=== PATIENT | male | born 1955 | race Caucasian/White ===

== ENCOUNTER → 2021-03-11 | Outpatient (CLI) | payer MEDICARE ==
[~2021-03-11] MED LIST: IOPAMIDOL 370 MG/ML 200 ML INFUS..BTL INJ ONE; SODIUM CHLORIDE 0.9% 50ML 50 ML ONE
[2021-03-11 11:07] LABS: CREATININE, SERUM 0.88 mg/dL (0.72-1.25)
== END ==
LOC: NM 09:48
PROVIDERS: ATTEND Urology
DX: C61 Malignant neoplasm of prostate (principal)
CPT/HCPCS: 36415; 71046; 74177; 78306; 82565; 84520; A9503; Q9967; A9570

== ENCOUNTER 2021-05-03 10:06 | Inpatient (IN) | payer MEDICARE ==
[2021-05-02 10:11] LABS: BASOPHILS % 0.2 % (0.0-1.0); EOSINOPHILS # (AUTO) 0.1 (0.0-0.4); EOSINOPHILS % 0.9 % (0.0-6.0); HEMATOCRIT 47.7 % (38.2-49.6); HEMOGLOBIN 15.6 g/dL (14.0-18.0); LYMPHOCYTES # (AUTO) 1.4 (1.0-3.2); LYMPHOCYTES % 24.6 % (18.0-39.1); MEAN CORPUSCULAR HEMOGLOBIN 29.8 pg (28-32); MEAN CORPUSCULAR HGB CONC 32.7 g/dL (31-35); MEAN CORPUSCULAR VOLUME 91.2 fL (81-99); MONOCYTES # (AUTO) 0.4 (0.2-0.8); MONOCYTES % 7.2 % (4.4-11.3); NEUTROPHILS # (AUTO) 3.8 (2.1-6.9); NEUTROPHILS % 66.9 % (38.7-80.0); PLATELET COUNT 197 x10e3/uL (140-360); RED BLOOD COUNT 5.23 x10e6/uL (4.3-5.7); RED CELL DISTRIBUTION WIDTH 12.5 % (11.7-14.4)
[2021-05-02 10:38] LABS: ALBUMIN 4.2 g/dL (3.5-5.0); ALBUMIN/GLOBULIN RATIO 1.3 (0.8-2.0); ANION GAP 13.3 mmol/L (8-16); CALCIUM 10.6 mg/dL (8.4-10.2); CREATININE, SERUM 0.81 mg/dL (0.72-1.25); POTASSIUM 5.3 mmol/L (3.5-5.1)
[~2021-05-03] VITALS: Ht 188 cm; Wt 103.9 kg
[~2021-05-03 10:06] MED LIST changes: +BENICAR20 MG PO; +CALCIUM600 MG PO; +COMBIGAN EYE DRO5 ML OP; +CRESTOR10 MG PO; +FINASTERIDE5 MG PO; +FLOMAX0.4 MG PO; -IOPAMIDOL 370 MG/ML 200 ML INFUS..BTL INJ ONE; +ROCKLATAN 0.022.5 ML OP; -SODIUM CHLORIDE 0.9% 50ML 50 ML ONE
[2021-05-03] MEDS ORDERED: SODIUM CHLORIDE 0.9% 50ML 100 ML ONE (11:18)
[2021-05-03] MEDS ORDERED: MIDAZOLAM HCL 2 MG/2 ML VIAL ONE (12:49)
[2021-05-03] MEDS ORDERED: FENTANYL CITRATE/PF 100MCG/2 ML INJ ONE ×2 (12:49→15:16)
[2021-05-03] MEDS ORDERED: KETAMINE HCL INJ 50 MG/ML 10 ML VIAL ONE (12:49)
[2021-05-03] MEDS ORDERED: PROPOFOL IV EMULSION 10 MG/ML 20 ML VIAL ONE (14:14)
[2021-05-03] MEDS ORDERED: ROCURONIUM BROMIDE 10 MG/ML 5ML VIAL IV ONE (14:14)
[2021-05-03] MEDS ORDERED: EPHEDRINE SULFATE INJ 50 MG/ML VIAL ONE (14:14)
[2021-05-03] MEDS ORDERED: NEOSTIGMINE 1 MG/ML 10ML VIAL ONE (14:14)
[2021-05-03] MEDS ORDERED: DEXAMETHASONE SOD PHOS INJ 4 MG/ML SDV ONE (14:14)
[2021-05-03] MEDS ORDERED: ONDANSETRON HCL INJ 2MG/ML 2ML 2 MG/ML VIAL ONE (14:14)
[2021-05-03] MEDS ORDERED: POVIDONE IODINE 0.05% 0.05 % ML PO ONE (14:14)
[2021-05-03] MEDS ORDERED: LIDOCAINE HCL 2% LOCAL INJ 5 ML SDV VIAL INJ ONE (14:14)
[2021-05-03] MEDS ORDERED: GLYCOPYRROLATE INJ 0.2 MG/ML VIAL ONE (14:14)
[2021-05-03] MEDS ORDERED: SUCCINYLCHOLINE CHLORIDE 20 MG/ML 10ML VIAL ONE (14:14)
[2021-05-03] MEDS ORDERED: SEVOFLURANE INHAL SOLN 250 ML PEN BTL ONE (14:14)
[2021-05-03] MEDS: D5.45%NS/KCL 20MEQ 1,000 ML IV SCH ×2 (14:45→21:09)
[2021-05-03] MEDS ORDERED: DIPHENHYDRAMINE HCL INJ 50 MG/ML VIAL IM PRN (14:45)
[2021-05-03] MEDS ORDERED: NALOXONE HCL INJ 0.4 MG/ML AMP IV PRN (14:45)
[2021-05-03] MEDS ORDERED: ONDANSETRON HCL INJ 2MG/ML 2ML 2 MG/ML VIAL IV PRN (14:45)
[2021-05-03] MEDS ORDERED: MORPHINE SULFATE 1 MG/ML 30ML PCA ONE (15:03)
[2021-05-03 15:10] LABS: BASOPHILS % 0.1 % (0.0-1.0); EOSINOPHILS % 0.1 % (0.0-6.0); HEMATOCRIT 44.7 % (38.2-49.6); HEMOGLOBIN 14.5 g/dL (14.0-18.0); LYMPHOCYTES # (AUTO) 1.2 (1.0-3.2); LYMPHOCYTES % 10.6 % (18.0-39.1); MEAN CORPUSCULAR HEMOGLOBIN 29.5 pg (28-32); MEAN CORPUSCULAR HGB CONC 32.4 g/dL (31-35); MEAN CORPUSCULAR VOLUME 90.9 fL (81-99); MONOCYTES # (AUTO) 0.5 (0.2-0.8); MONOCYTES % 4.4 % (4.4-11.3); NEUTROPHILS # (AUTO) 9.5 (2.1-6.9); NEUTROPHILS % 84.4 % (38.7-80.0); PLATELET COUNT 153 x10e3/uL (140-360); RED BLOOD COUNT 4.92 x10e6/uL (4.3-5.7); RED CELL DISTRIBUTION WIDTH 12.4 % (11.7-14.4)
[2021-05-03 15:29] LABS: ANION GAP 10.3 mmol/L (8-16); CALCIUM 9.6 mg/dL (8.4-10.2); CREATININE, SERUM 0.82 mg/dL (0.72-1.25); POTASSIUM 4.3 mmol/L (3.5-5.1)
[2021-05-03] MEDS ORDERED: Morphine 4mg Syringe 4 MG/ML INJ ONE (15:32)
[2021-05-03] MEDS ORDERED: HYDROMORPHONE 1MG/1ML INJ ONE (15:45)
[2021-05-03 17:00] VITALS: BP 127/71
[2021-05-03 17:12] VITALS: BP 149/75
[2021-05-03] MEDS ORDERED: ACETAMINOPHEN 1000 MG/100 ML IV PRN (18:00)
[2021-05-03] MEDS: DOCUSATE SODIUM 100 MG CAP PO SCH (18:08)
[2021-05-03 20:26] VITALS: BP 160/80
[2021-05-03] MEDS: Cefazolin 1 GM in SODIUM CHLORIDE 0.9% 50ML 50 ML IV SCH (21:03)
[2021-05-03] MEDS: MORPHINE SULFATE 1 MG/ML 30ML PCA IV PRN (23:35)
[2021-05-04] VITALS (8 sets, daily range): BP systolic 139–160; BP diastolic 67–85
[2021-05-04] MEDS: D5.45%NS/KCL 20MEQ 1,000 ML IV SCH ×3 (03:12→21:00)
[2021-05-04] MEDS: Cefazolin 1 GM in SODIUM CHLORIDE 0.9% 50ML 50 ML IV SCH ×3 (05:21→22:56)
[2021-05-04 06:44] LABS: BASOPHILS % 0.1 % (0.0-1.0); HEMATOCRIT 44.5 % (38.2-49.6); HEMOGLOBIN 14.7 g/dL (14.0-18.0); LYMPHOCYTES # (AUTO) 1.4 (1.0-3.2); MEAN CORPUSCULAR HEMOGLOBIN 29.3 pg (28-32); MEAN CORPUSCULAR VOLUME 88.6 fL (81-99); MONOCYTES % 9.8 % (4.4-11.3); NEUTROPHILS % 76.6 % (38.7-80.0); PLATELET COUNT 189 x10e3/uL (140-360); RED BLOOD COUNT 5.02 x10e6/uL (4.3-5.7); RED CELL DISTRIBUTION WIDTH 12.4 % (11.7-14.4)
[2021-05-04 06:52] LABS: ANION GAP 12.8 mmol/L (8-16); CALCIUM 9.7 mg/dL (8.4-10.2); CREATININE, SERUM 0.77 mg/dL (0.72-1.25); POTASSIUM 4.8 mmol/L (3.5-5.1)
[2021-05-04] MEDS: MORPHINE SULFATE 1 MG/ML 30ML PCA IV PRN (09:23)
[2021-05-04] MEDS: DOCUSATE SODIUM 100 MG CAP PO SCH ×2 (09:58→17:55)
[2021-05-04] MEDS: COMBIGAN OPTH OP SCH (10:45)
[2021-05-04] MEDS: FINASTERIDE 5 MG TAB PO SCH (12:07)
[2021-05-04] MEDS: OLMESARTAN 20 MG TAB PO SCH (12:07)
[2021-05-04] MEDS ORDERED: MORPHINE SULFATE 1 MG/ML 30ML PCA IV PRN (16:15)
[2021-05-04] MEDS: TAMSULOSIN HCL 0.4 MG CAP PO SCH (17:55)
[2021-05-04] MEDS: SIMVASTATIN 40 MG TAB PO SCH (21:29)
[2021-05-05] VITALS (7 sets, daily range): BP systolic 134–156; BP diastolic 69–77
[2021-05-05] MEDS: Cefazolin 1 GM in SODIUM CHLORIDE 0.9% 50ML 50 ML IV SCH ×3 (06:18→22:00)
[2021-05-05] MEDS: D5.45%NS/KCL 20MEQ 1,000 ML IV SCH (06:45)
[2021-05-05 07:12] LABS: ANION GAP 12.4 mmol/L (8-16); CALCIUM 9.9 mg/dL (8.4-10.2); CREATININE, SERUM 0.74 mg/dL (0.72-1.25); POTASSIUM 5.4 mmol/L (3.5-5.1)
[2021-05-05 07:20] LABS: BASOPHILS % 0.2 % (0.0-1.0); EOSINOPHILS % 0.4 % (0.0-6.0); HEMATOCRIT 44.7 % (38.2-49.6); HEMOGLOBIN 14.7 g/dL (14.0-18.0); LYMPHOCYTES # (AUTO) 1.5 (1.0-3.2); LYMPHOCYTES % 18.4 % (18.0-39.1); MEAN CORPUSCULAR HEMOGLOBIN 30.7 pg (28-32); MEAN CORPUSCULAR HGB CONC 32.9 g/dL (31-35); MEAN CORPUSCULAR VOLUME 93.3 fL (81-99); MONOCYTES # (AUTO) 0.8 (0.2-0.8); MONOCYTES % 10.1 % (4.4-11.3); NEUTROPHILS # (AUTO) 5.8 (2.1-6.9); NEUTROPHILS % 70.7 % (38.7-80.0); PLATELET COUNT 158 x10e3/uL (140-360); RED BLOOD COUNT 4.79 x10e6/uL (4.3-5.7); RED CELL DISTRIBUTION WIDTH 12.8 % (11.7-14.4)
[2021-05-05] MEDS: COMBIGAN OPTH OP SCH (09:25)
[2021-05-05] MEDS: DOCUSATE SODIUM 100 MG CAP PO SCH ×2 (09:26→16:52)
[2021-05-05] MEDS: FINASTERIDE 5 MG TAB PO SCH (09:26)
[2021-05-05] MEDS: OLMESARTAN 20 MG TAB PO SCH (09:26)
[2021-05-05] MEDS ORDERED: HYDROCODONE/APAP 10MG-325MG TAB PO PRN (10:00)
[2021-05-05] MEDS ORDERED: MAGNESIUM HYDROXIDE 30 ML UDC PO PRN (10:00)
[2021-05-05] MEDS ORDERED: Morphine 4mg Syringe 4 MG/ML INJ IV PRN (10:00)
[2021-05-05] MEDS: SENNA-S TABLET PO SCH ×2 (11:09→16:52)
[2021-05-05] MEDS ORDERED: ACETAMINOPHEN/CODEINE 300MG - 30MG TAB PO PRN (13:15)
[2021-05-05] MEDS: TAMSULOSIN HCL 0.4 MG CAP PO SCH (16:52)
[2021-05-05 17:40] LABS: ANION GAP 13.6 mmol/L (8-16); CALCIUM 10.4 mg/dL (8.4-10.2); CREATININE, SERUM 0.83 mg/dL (0.72-1.25); POTASSIUM 4.6 mmol/L (3.5-5.1)
[2021-05-05] MEDS: SIMVASTATIN 40 MG TAB PO SCH (21:03)
[2021-05-06] VITALS: BP 149/71
[2021-05-06 04:00] VITALS: BP 143/75
[2021-05-06 05:37] LABS: BASOPHILS % 0.2 % (0.0-1.0); EOSINOPHILS # (AUTO) 0.1 (0.0-0.4); EOSINOPHILS % 1.9 % (0.0-6.0); HEMATOCRIT 44.8 % (38.2-49.6); HEMOGLOBIN 14.4 g/dL (14.0-18.0); LYMPHOCYTES # (AUTO) 1.6 (1.0-3.2); LYMPHOCYTES % 25.8 % (18.0-39.1); MEAN CORPUSCULAR HEMOGLOBIN 29.7 pg (28-32); MEAN CORPUSCULAR HGB CONC 32.1 g/dL (31-35); MEAN CORPUSCULAR VOLUME 92.4 fL (81-99); MONOCYTES # (AUTO) 0.9 (0.2-0.8); MONOCYTES % 13.9 % (4.4-11.3); NEUTROPHILS # (AUTO) 3.7 (2.1-6.9); NEUTROPHILS % 57.9 % (38.7-80.0); PLATELET COUNT 163 x10e3/uL (140-360); RED BLOOD COUNT 4.85 x10e6/uL (4.3-5.7); RED CELL DISTRIBUTION WIDTH 12.7 % (11.7-14.4)
[2021-05-06 06:10] LABS: ANION GAP 11.4 mmol/L (8-16); CALCIUM 10.4 mg/dL (8.4-10.2); CREATININE, SERUM 0.81 mg/dL (0.72-1.25); POTASSIUM 5.4 mmol/L (3.5-5.1)
[2021-05-06 08:00] VITALS: BP 150/75
[2021-05-06 08:34] VITALS: BP 150/75
[2021-05-06] MEDS: FINASTERIDE 5 MG TAB PO SCH (08:51)
[2021-05-06] MEDS: DOCUSATE SODIUM 100 MG CAP PO SCH (08:51)
[2021-05-06] MEDS: SENNA-S TABLET PO SCH (08:52)
[2021-05-06] MEDS: COMBIGAN OPTH OP SCH (08:52)
[2021-05-06] MEDS: OLMESARTAN 20 MG TAB PO SCH (08:52)
[2021-05-06] MEDS ORDERED: ONDANSETRON HCL 4 MG ORAL DISINTEGRATING TAB PO PRN (09:00)
== END 2021-05-06 10:15 | disposition home or self-care (01) | DRG 716 ==
LOC: OR 10:06 → PACU V 14:34 → MED/SURG 16:40
PROVIDERS: ADMIT Internal Medicine; ATTEND Internal Medicine
PROC: 0TJB8ZZ Inspection of Bladder, Via Natural or Artificial Opening Endoscopic (ICD-10-PCS; principal; 2021-05-04)
PROC: 07BC4ZX Excision of Pelvis Lymphatic, Percutaneous Endoscopic Approach, Diagnostic (ICD-10-PCS; 2021-05-04)
DX: C61 Malignant neoplasm of prostate (principal); E66.9 Obesity, unspecified; Z68.29 Body mass index [BMI] 29.0-29.9, adult; I10 Essential (primary) hypertension; R06.83 Snoring; N40.1 Benign prostatic hyperplasia with lower urinary tract symptoms; R33.8 Other retention of urine; Z20.822 Contact with and (suspected) exposure to COVID-19; E78.5 Hyperlipidemia, unspecified
CPT/HCPCS: 36415; 80048; 80053; 83735; 84132; 85025; 86850; 86900; 88304; 88305; 93005; J0330; J0690; J1100; J1170; J2001; J2250; J2270; J2405; J2710; J3010; U0002

== ENCOUNTER 2021-05-29 07:54 | Inpatient (IN) | payer MEDICARE ==
[2021-05-27 15:24] LABS: BASOPHILS % 0.2 % (0.0-1.0); EOSINOPHILS # (AUTO) 0.1 (0.0-0.4); EOSINOPHILS % 1.7 % (0.0-6.0); HEMOGLOBIN 13.5 g/dL (14.0-18.0); LYMPHOCYTES # (AUTO) 1.7 (1.0-3.2); LYMPHOCYTES % 35.5 % (18.0-39.1); MEAN CORPUSCULAR HEMOGLOBIN 29.5 pg (28-32); MEAN CORPUSCULAR HGB CONC 32.1 g/dL (31-35); MEAN CORPUSCULAR VOLUME 91.9 fL (81-99); MONOCYTES # (AUTO) 0.5 (0.2-0.8); MONOCYTES % 9.7 % (4.4-11.3); NEUTROPHILS # (AUTO) 2.5 (2.1-6.9); NEUTROPHILS % 52.9 % (38.7-80.0); PLATELET COUNT 184 x10e3/uL (140-360); RED BLOOD COUNT 4.57 x10e6/uL (4.3-5.7); RED CELL DISTRIBUTION WIDTH 12.7 % (11.7-14.4)
[2021-05-27 15:46] LABS: ANION GAP 13.3 mmol/L (8-16); CALCIUM 10.4 mg/dL (8.4-10.2); CREATININE, SERUM 0.95 mg/dL (0.72-1.25)
[2021-05-27 15:47] LABS: POTASSIUM 5.3 mmol/L (3.5-5.1)
[~2021-05-29] VITALS: Ht 188 cm; Wt 103.9 kg
[2021-05-29] MEDS ORDERED: SODIUM CHLORIDE 0.9% 1000ML 1,000 ML ONE (08:11)
[2021-05-29] MEDS ORDERED: GENTAMICIN 80MG/NS 100 ML 200 ML IV ONE (08:21)
[2021-05-29] MEDS ORDERED: CEFTRIAXONE 1 GM VIAL ONE (08:22)
[2021-05-29] MEDS ORDERED: SODIUM CHLORIDE 0.9% 50ML 50 ML ONE (08:22)
[2021-05-29] MEDS ORDERED: BELLADONNA/OPIUM 30 MG SUPP RC ONE (09:31)
[2021-05-29] MEDS ORDERED: IOPAMIDOL 300MG/ML 50ML INFUS..BTL IV ONE (09:31)
[2021-05-29] MEDS ORDERED: HYDROMORPHONE 1MG/1ML INJ ONE (12:14)
[2021-05-29] MEDS ORDERED: Morphine 4mg Syringe 4 MG/ML INJ ONE (12:43)
[2021-05-29] MEDS ORDERED: ONDANSETRON HCL INJ 2MG/ML 2ML 2 MG/ML VIAL ONE (13:09)
[2021-05-29] MEDS ORDERED: DEXAMETHASONE SOD PHOS INJ 4 MG/ML SDV ONE (13:09)
[2021-05-29] MEDS ORDERED: PROPOFOL IV EMULSION 10 MG/ML 20 ML VIAL ONE (13:09)
[2021-05-29] MEDS ORDERED: SEVOFLURANE INHAL SOLN 250 ML PEN BTL ONE (13:09)
[2021-05-29] MEDS ORDERED: EPHEDRINE SULFATE INJ 50 MG/ML VIAL ONE (13:09)
[2021-05-29] MEDS ORDERED: POVIDONE IODINE 0.05% 0.05 % ML PO ONE (13:09)
[2021-05-29] MEDS ORDERED: LIDOCAINE HCL 2% LOCAL INJ 5 ML SDV VIAL INJ ONE (13:09)
[2021-05-29] MEDS ORDERED: KETOROLAC TROMETHAMINE 30 MG/ML VIAL ONE (13:09)
[2021-05-29] MEDS ORDERED: B&O 60MG R/S 60 MG SUPP PR PRN (13:15)
[2021-05-29] MEDS ORDERED: ONDANSETRON HCL INJ 2MG/ML 2ML 2 MG/ML VIAL IV PRN (13:15)
[2021-05-29] MEDS ORDERED: DIPHENHYDRAMINE HCL 25 MG CAP PO PRN (13:15)
[2021-05-29] MEDS ORDERED: MIDAZOLAM HCL 2 MG/2 ML VIAL ONE (13:43)
[2021-05-29] MEDS ORDERED: FENTANYL CITRATE/PF 100MCG/2 ML INJ ONE (13:43)
[2021-05-29 13:58] LABS: BASOPHILS % 0.1 % (0.0-1.0); EOSINOPHILS % 0.2 % (0.0-6.0); HEMATOCRIT 40.8 % (38.2-49.6); HEMOGLOBIN 13.4 g/dL (14.0-18.0); LYMPHOCYTES # (AUTO) 0.9 (1.0-3.2); LYMPHOCYTES % 9.7 % (18.0-39.1); MEAN CORPUSCULAR HEMOGLOBIN 29.5 pg (28-32); MEAN CORPUSCULAR HGB CONC 32.8 g/dL (31-35); MEAN CORPUSCULAR VOLUME 89.9 fL (81-99); MONOCYTES # (AUTO) 0.2 (0.2-0.8); NEUTROPHILS # (AUTO) 8.2 (2.1-6.9); NEUTROPHILS % 87.7 % (38.7-80.0); PLATELET COUNT 160 x10e3/uL (140-360); RED BLOOD COUNT 4.54 x10e6/uL (4.3-5.7); RED CELL DISTRIBUTION WIDTH 12.6 % (11.7-14.4)
[2021-05-29 14:19] LABS: ANION GAP 11.6 mmol/L (8-16); CALCIUM 9.3 mg/dL (8.4-10.2); CREATININE, SERUM 0.72 mg/dL (0.72-1.25); POTASSIUM 4.6 mmol/L (3.5-5.1)
[2021-05-29 15:03] VITALS: BP 139/67
[2021-05-29] MEDS: D5.45%NS/KCL 20MEQ 1,000 ML IV SCH ×2 (15:15→23:43)
[2021-05-29] MEDS: PHENAZOPYRIDINE HCL 100 MG TAB PO PRN (15:16)
[2021-05-29] MEDS: ACETAMINOPHEN/CODEINE 300MG - 30MG TAB PO PRN ×3 (15:30→23:44)
[2021-05-29] MEDS: DOCUSATE SODIUM 100 MG CAP PO SCH (17:21)
[2021-05-29 17:24] VITALS: BP 119/58
[2021-05-29 20:00] VITALS: BP 136/70
[2021-05-30] VITALS (8 sets, daily range): BP systolic 112–134; BP diastolic 57–64
[2021-05-30] MEDS: ACETAMINOPHEN/CODEINE 300MG - 30MG TAB PO PRN ×4 (05:31→20:39)
[2021-05-30 05:49] LABS: BASOPHILS % 0.1 % (0.0-1.0); HEMATOCRIT 36.1 % (38.2-49.6); HEMOGLOBIN 11.8 g/dL (14.0-18.0); LYMPHOCYTES # (AUTO) 1.5 (1.0-3.2); LYMPHOCYTES % 16.7 % (18.0-39.1); MEAN CORPUSCULAR HEMOGLOBIN 29.6 pg (28-32); MEAN CORPUSCULAR HGB CONC 32.7 g/dL (31-35); MEAN CORPUSCULAR VOLUME 90.5 fL (81-99); MONOCYTES # (AUTO) 0.7 (0.2-0.8); MONOCYTES % 7.3 % (4.4-11.3); NEUTROPHILS % 75.6 % (38.7-80.0); PLATELET COUNT 193 x10e3/uL (140-360); RED BLOOD COUNT 3.99 x10e6/uL (4.3-5.7); RED CELL DISTRIBUTION WIDTH 12.8 % (11.7-14.4)
[2021-05-30 06:09] LABS: ANION GAP 12.8 mmol/L (8-16); CALCIUM 9.6 mg/dL (8.4-10.2); CREATININE, SERUM 0.81 mg/dL (0.72-1.25); POTASSIUM 4.8 mmol/L (3.5-5.1)
[2021-05-30] MEDS: D5.45%NS/KCL 20MEQ 1,000 ML IV SCH ×3 (07:45→23:53)
[2021-05-30] MEDS: CEFTRIAXONE 1 GM in SODIUM CHLORIDE 0.9% 50ML 50 ML IV SCH (08:55)
[2021-05-30] MEDS: DOCUSATE SODIUM 100 MG CAP PO SCH ×2 (08:55→17:12)
[2021-05-30] MEDS: TAMSULOSIN HCL 0.4 MG CAP PO SCH (13:26)
[2021-05-30] MEDS: FINASTERIDE 5 MG TAB PO SCH (13:26)
[2021-05-30] MEDS: OLMESARTAN 20 MG TAB PO SCH (13:26)
[2021-05-30] MEDS: BRIMONIDINE/TIMOLOL (OPTH SOLN 5 ML DRPETTE OP SCH (15:35)
[2021-05-30] MEDS: SIMVASTATIN 20 MG TAB PO SCH (20:40)
[2021-05-30] MEDS: PHENAZOPYRIDINE HCL 100 MG TAB PO PRN (20:40)
[2021-05-31] VITALS (7 sets, daily range): BP systolic 113–127; BP diastolic 57–65
[2021-05-31 06:00] LABS: BASOPHILS % 0.2 % (0.0-1.0); EOSINOPHILS # (AUTO) 0.1 (0.0-0.4); EOSINOPHILS % 0.9 % (0.0-6.0); HEMATOCRIT 32.3 % (38.2-49.6); HEMOGLOBIN 10.4 g/dL (14.0-18.0); LYMPHOCYTES # (AUTO) 1.7 (1.0-3.2); LYMPHOCYTES % 25.9 % (18.0-39.1); MEAN CORPUSCULAR HEMOGLOBIN 29.6 pg (28-32); MEAN CORPUSCULAR HGB CONC 32.2 g/dL (31-35); MONOCYTES # (AUTO) 0.7 (0.2-0.8); MONOCYTES % 10.1 % (4.4-11.3); NEUTROPHILS # (AUTO) 4.1 (2.1-6.9); NEUTROPHILS % 62.6 % (38.7-80.0); PLATELET COUNT 140 x10e3/uL (140-360); RED BLOOD COUNT 3.51 x10e6/uL (4.3-5.7)
[2021-05-31 06:29] LABS: ANION GAP 8.9 mmol/L (8-16); CALCIUM 8.9 mg/dL (8.4-10.2); CREATININE, SERUM 0.64 mg/dL (0.72-1.25); POTASSIUM 3.9 mmol/L (3.5-5.1)
[2021-05-31] MEDS: TAMSULOSIN HCL 0.4 MG CAP PO SCH (08:29)
[2021-05-31] MEDS: OLMESARTAN 20 MG TAB PO SCH (08:29)
[2021-05-31] MEDS: DOCUSATE SODIUM 100 MG CAP PO SCH ×2 (08:29→16:12)
[2021-05-31] MEDS: CEFTRIAXONE 1 GM in SODIUM CHLORIDE 0.9% 50ML 50 ML IV SCH (08:30)
[2021-05-31] MEDS: BRIMONIDINE/TIMOLOL (OPTH SOLN 5 ML DRPETTE OP SCH (08:30)
[2021-05-31] MEDS: FINASTERIDE 5 MG TAB PO SCH (08:30)
[2021-05-31] MEDS: D5.45%NS/KCL 20MEQ 1,000 ML IV SCH ×2 (08:38→16:30)
[2021-05-31] MEDS: ACETAMINOPHEN/CODEINE 300MG - 30MG TAB PO PRN (08:40)
[2021-05-31] MEDS ORDERED: ONDANSETRON HCL 4 MG ORAL DISINTEGRATING TAB PO PRN (14:30)
[2021-05-31] MEDS: GENTAMICIN 80MG/NS 100 ML 100 ML IV SCH ×2 (16:13→22:29)
[2021-05-31] MEDS: SIMVASTATIN 20 MG TAB PO SCH (20:41)
[2021-06-01] VITALS (7 sets, daily range): BP systolic 123–144; BP diastolic 59–70
[2021-06-01] MEDS: GENTAMICIN 80MG/NS 100 ML 100 ML IV SCH ×2 (05:34→14:18)
[2021-06-01 06:41] LABS: BASOPHILS % 0.2 % (0.0-1.0); EOSINOPHILS # (AUTO) 0.1 (0.0-0.4); EOSINOPHILS % 1.7 % (0.0-6.0); HEMATOCRIT 34.7 % (38.2-49.6); HEMOGLOBIN 10.9 g/dL (14.0-18.0); LYMPHOCYTES # (AUTO) 1.8 (1.0-3.2); LYMPHOCYTES % 28.5 % (18.0-39.1); MEAN CORPUSCULAR HEMOGLOBIN 29.5 pg (28-32); MEAN CORPUSCULAR HGB CONC 31.4 g/dL (31-35); MEAN CORPUSCULAR VOLUME 93.8 fL (81-99); MONOCYTES # (AUTO) 0.6 (0.2-0.8); MONOCYTES % 10.2 % (4.4-11.3); NEUTROPHILS # (AUTO) 3.7 (2.1-6.9); NEUTROPHILS % 59.1 % (38.7-80.0); PLATELET COUNT 147 x10e3/uL (140-360); RED CELL DISTRIBUTION WIDTH 12.9 % (11.7-14.4)
[2021-06-01 06:58] LABS: ANION GAP 9.9 mmol/L (8-16); CALCIUM 9.3 mg/dL (8.4-10.2); CREATININE, SERUM 0.66 mg/dL (0.72-1.25); POTASSIUM 3.9 mmol/L (3.5-5.1)
[2021-06-01] MEDS: OLMESARTAN 20 MG TAB PO SCH (10:08)
[2021-06-01] MEDS: FINASTERIDE 5 MG TAB PO SCH (10:08)
[2021-06-01] MEDS: TAMSULOSIN HCL 0.4 MG CAP PO SCH (10:08)
[2021-06-01] MEDS: DOCUSATE SODIUM 100 MG CAP PO SCH ×2 (10:08→16:49)
[2021-06-01] MEDS: BRIMONIDINE/TIMOLOL (OPTH SOLN 5 ML DRPETTE OP SCH (10:10)
[2021-06-01] MEDS: SIMVASTATIN 20 MG TAB PO SCH (20:44)
[2021-06-02 05:39] VITALS: BP 143/76
[2021-06-02 07:01] LABS: BASOPHILS % 0.4 % (0.0-1.0); EOSINOPHILS # (AUTO) 0.1 (0.0-0.4); EOSINOPHILS % 2.6 % (0.0-6.0); HEMATOCRIT 33.3 % (38.2-49.6); HEMOGLOBIN 10.9 g/dL (14.0-18.0); LYMPHOCYTES # (AUTO) 1.5 (1.0-3.2); LYMPHOCYTES % 29.4 % (18.0-39.1); MEAN CORPUSCULAR HEMOGLOBIN 29.5 pg (28-32); MEAN CORPUSCULAR HGB CONC 32.7 g/dL (31-35); MONOCYTES # (AUTO) 0.5 (0.2-0.8); MONOCYTES % 10.5 % (4.4-11.3); NEUTROPHILS # (AUTO) 2.8 (2.1-6.9); NEUTROPHILS % 56.7 % (38.7-80.0); PLATELET COUNT 137 x10e3/uL (140-360); RED CELL DISTRIBUTION WIDTH 12.8 % (11.7-14.4)
[2021-06-02 07:17] LABS: ANION GAP 9.9 mmol/L (8-16); CALCIUM 9.6 mg/dL (8.4-10.2); CREATININE, SERUM 0.62 mg/dL (0.72-1.25); POTASSIUM 3.9 mmol/L (3.5-5.1)
[2021-06-02 07:57] VITALS: BP 148/65
[2021-06-02] MEDS: BRIMONIDINE/TIMOLOL (OPTH SOLN 5 ML DRPETTE OP SCH (08:30)
[2021-06-02] MEDS: DOCUSATE SODIUM 100 MG CAP PO SCH ×2 (09:32→15:59)
[2021-06-02] MEDS: FINASTERIDE 5 MG TAB PO SCH (09:32)
[2021-06-02] MEDS: TAMSULOSIN HCL 0.4 MG CAP PO SCH (09:32)
[2021-06-02] MEDS: OLMESARTAN 20 MG TAB PO SCH (09:33)
[2021-06-02 11:32] VITALS: BP 143/53
[2021-06-02 11:35] VITALS: BP 120/73
[2021-06-02 20:00] VITALS: BP 141/64
[2021-06-02] MEDS: SIMVASTATIN 20 MG TAB PO SCH (20:41)
[2021-06-02 21:36] VITALS: BP 141/64
[2021-06-03] VITALS: BP 128/66
[2021-06-03 04:00] VITALS: BP 123/64
[2021-06-03 07:22] VITALS: BP 146/67
[2021-06-03 07:43] VITALS: BP 146/67
[2021-06-03] MEDS: BRIMONIDINE/TIMOLOL (OPTH SOLN 5 ML DRPETTE OP SCH (09:00)
[2021-06-03] MEDS: OLMESARTAN 20 MG TAB PO SCH (09:28)
[2021-06-03] MEDS: DOCUSATE SODIUM 100 MG CAP PO SCH (09:29)
[2021-06-03] MEDS: FINASTERIDE 5 MG TAB PO SCH (09:30)
[2021-06-03] MEDS: TAMSULOSIN HCL 0.4 MG CAP PO SCH (09:30)
[2021-06-03 11:25] VITALS: BP 134/64
[2021-06-03 15:31] VITALS: BP 148/66
[2021-06-03] MEDS ORDERED: TYLENOL 3 PO (18:28)
== END 2021-06-03 15:45 | disposition home or self-care (01) | DRG 713 ==
LOC: OR 07:54 → PACU V 13:07 → MED/SURG 14:30
PROVIDERS: ADMIT Internal Medicine; ATTEND Internal Medicine
PROC: 0VB08ZZ Excision of Prostate, Via Natural or Artificial Opening Endoscopic (ICD-10-PCS; principal; 2021-05-29 10:00)
DX: N40.1 Benign prostatic hyperplasia with lower urinary tract symptoms (principal); N13.8 Other obstructive and reflux uropathy; N02.8 Recurrent and persistent hematuria with other morphologic changes; R39.12 Poor urinary stream; R35.1 Nocturia; E66.9 Obesity, unspecified; Z68.29 Body mass index [BMI] 29.0-29.9, adult; C61 Malignant neoplasm of prostate; E29.1 Testicular hypofunction; I10 Essential (primary) hypertension; D64.9 Anemia, unspecified; Z20.822 Contact with and (suspected) exposure to COVID-19
CPT/HCPCS: 36415; 74420; 80048; 83735; 84132; 85025; 86850; 86900; 94799; 96361; C1758; J0696; J1100; J1170; J1580; J1885; J2001; J2250; J2270; J2405; J3010; J7030; U0002